=== PATIENT | male | born 1965 | race Two or more races ===

== ENCOUNTER → 2017-06-21 | Outpatient (CLI) | payer OTHER | END | disposition home or self-care (01) | LOC: SPEC 10:00 | PROVIDERS: ATTEND Nurse Practitioner | DX: B19.20 Unspecified viral hepatitis C without hepatic coma (principal) | CPT/HCPCS: 36415; 82140 ==

== ENCOUNTER 2017-08-07 01:42 | Inpatient (IN) | payer OTHER ==
[~2017-08-07] VITALS: Ht 167.6 cm; Wt 107.0 kg
--- NOTE | 2017-08-07 01:48 | ED.ADGEN ---
Past History Past Medical History: Hepatitis, Other Adult General Chief Complaint Chief Complaint " I ve been running a fever.. and my legs swollen and red.."..." I got hepatitis.." I was okay yesterday.. but I got all this redness on my Lt leg.. even up on my thigh......" HPI HPI Patient is a 51 year old male inmate from [facility], who presents with above hx of fever, chills, cellulitis of Lt leg. Pt. denies any recent travel or specific ill contacts. Pt. has hx. chronic Hept. C. , GERD, Constipation, Veinous stasis. Pt. currently having bouts of rigor and fever. Pt. denies immunosuppression. Review of Systems Review of Systems Constitutional: Hx of fever and chills [] Eyes: Denies change in visual acuity, redness, or eye pain [] HENT: Denies nasal congestion or sore throat [] Complaints of sore tongue Respiratory: Denies cough or shortness of breath [] Cardiovascular: No additional information not addressed in HPI [] GI: Denies abdominal pain, nausea, vomiting, bloody stools or diarrhea [] : Denies dysuria or hematuria [] Musculoskeletal: Denies back pain or joint pain [] Integument: Hx of rash and skin lesions [] Neurologic: Denies headache, focal weakness or sensory changes [] Endocrine: Denies polyuria or polydipsia [] All other systems were reviewed and found to be within normal limits, except as documented in this note. Family History Family History Non-contributory Current Medications Current Medications Current Medications Medications (Trade) Dose Ordered Sig/Sheba Start Time Stop Time Status Last Admin Dose Admin Acetaminophen (Tylenol) 1,000 mg 1X ONCE 08/07/17 04:00 08/07/17 04:01 DC 08/07/17 03:58 1,000 MG Ceftriaxone Sodium 1 gm/ Sodium Chloride 50 ml @ 100 mls/hr DAILY 08/07/17 09:00 UNV Ceftriaxone Sodium (Rocephin) 1 gm DAILY 08/07/17 09:00 08/07/17 09:00 DC Metronidazole 100 ml @ 100 mls/hr Q8HRS 08/07/17 06:00 08/07/17 06:00 DC Ondansetron HCl (Zofran) 4 mg PRN Q4HRS PRN 08/07/17 03:15 08/07/17 04:23 DC Sodium Chloride 250 ml @ As Directed STK-MED ONCE 08/07/17 03:17 08/07/17 03:18 DC Tetanus/ Diphtheria Toxoids Adsorbed (Tenivac Vial) 0.5 ml ONCE ONCE 08/07/17 04:00 08/07/17 04:01 DC 08/07/17 04:00 0.5 ML Vancomycin HCl (Vanco Per Pharmacy) 1 each PRN DAILY PRN 08/07/17 03:15 08/07/17 04:23 DC Vancomycin HCl (Vancomycin) 1 gm STK-MED ONCE 08/07/17 03:17 08/07/17 03:18 DC Vancomycin HCl 1 gm/Sodium Chloride 250 ml @ 250 mls/hr ONCE ONCE 08/07/17 04:00 08/07/17 04:23 DC See Nursing for Mcfp Meds. Allergies Allergies Allergies Coded Allergies Type Severity Reaction Last Updated Verified No Known Drug Allergies 08/07/17 No NKDA Physical Exam Physical Exam Constitutional: Moderately acute distress, non-toxic appearance. [] HENT: Normocephalic, atraumatic, bilateral external ears normal, oropharynx moist, mild injection pharynx, no oral exudates, nose normal. Geographic tongue. Eyes: PERRLA, EOMI, conjunctiva normal, no discharge. [] Neck: Normal range of motion, no tenderness, supple, no stridor. [] Cardiovascular: Tachycardia Heart rate regular rhythm, no murmur , Lungs & Thorax: Bilateral breath sounds equal at apex on auscultation [] Abdomen: Bowel sounds normal, soft, no tenderness, no masses, no pulsatile masses. [] Obese. Fluid wave. Skin: Warm, dry, Lt. thigh erythema and Lt distal leg, bilateral veinous stasis. Back: No tenderness, no CVA tenderness. [] Extremities: Lt leg tenderness, no cyanosis, no clubbing, ROM intact, bilateral leg edema. [] Neurologic: Alert and oriented X 3, no gross motor or sensory function deficits over his baseline. [] Psychologic: Affect anxious, judgement normal, mood normal. [] Current Patient Data Vital Signs Vital Signs Date Time Temp Pulse Resp B/P (MAP) Pulse Ox O2 Delivery O2 Flow Rate FiO2 08/07/17 04:10 103.1 98 18 135/58 (83) 99 Room Air Lab Results Laboratory Tests Test 08/07/17 02:05 08/07/17 02:30 White Blood Count 4.2 x10^3/uL (4.0-11.0) Red Blood Count 3.54 x10^6/uL (4.30-5.70) L Hemoglobin 9.6 g/dL (13.0-17.5) L Hematocrit 29.3 % (39.0-53.0) L Mean Corpuscular Volume 83 fL (79-100) Mean Corpuscular Hemoglobin 27 pg (25-35) Mean Corpuscular Hemoglobin Concent 33 g/dL (31-37) Red Cell Distribution Width 18.3 % (11.5-14.5) H Platelet Count 58 x10^3/uL (140-400) L Neutrophils (%) (Auto) 81 % (31-73) H Lymphocytes (%) (Auto) 10 % (24-48) L Monocytes (%) (Auto) 7 % (0-9) Eosinophils (%) (Auto) 2 % (0-3) Basophils (%) (Auto) 1 % (0-3) Neutrophils # (Auto) 3.4 x10^3uL (1.8-7.7) Lymphocytes # (Auto) 0.4 x10^3/uL (1.0-4.8) L Monocytes # (Auto) 0.3 x10^3/uL (0.0-1.1) Eosinophils # (Auto) 0.1 x10^3/uL (0.0-0.7) Basophils # (Auto) 0.0 x10^3/uL (0.0-0.2) Segmented Neutrophils % 80 % (35-66) H Band Neutrophils % 8 % (0-9) Lymphocytes % 7 % (24-48) L Monocytes % 4 % (0-10) Eosinophils % 1 % (0-5) Toxic Granulation Slight Platelet Estimate Decreased (ADEQUATE) Large Platelets Occ Polychromasia Slight Hypochromasia Mod Anisocytosis Mod Microcytosis Slight Macrocytosis Slight Tear Drop Cells Occ Ovalocytes Occ Prothrombin Time 13.8 SEC (9.4-11.4) H Prothrombin Time INR 1.4 (0.9-1.1) H PTT 33 SEC (23-33) Sodium Level 142 mmol/L (136-145) Potassium Level 3.7 mmol/L (3.5-5.1) Chloride Level 111 mmol/L (98-107) H Carbon Dioxide Level 25 mmol/L (21-32) Anion Gap 6 (6-14) Blood Urea Nitrogen 7 mg/dL (8-26) L Creatinine 1.0 mg/dL (0.7-1.3) Estimated GFR (Cockcroft-Gault) 79.1 Glucose Level 100 mg/dL (70-99) H Lactic Acid Level 1.6 mmol/L (0.4-2.0) Calcium Level 7.0 mg/dL (8.5-10.1) L Magnesium Level 1.8 mg/dL (1.8-2.4) Total Bilirubin 1.3 mg/dL (0.2-1.0) H Direct Bilirubin 0.6 mg/dL (0.0-0.2) H Aspartate Amino Transferase (AST) 125 U/L (15-37) H Alanine Aminotransferase (ALT) 77 U/L (16-63) H Alkaline Phosphatase 167 U/L (46-116) H Ammonia 141 mcmol/L (11-34) H Creatine Kinase 330 U/L (39-308) H Creatine Kinase MB (Mass) 1.2 ng/mL (0.0-3.6) Creatine Kinase MB Relative Index 0.4 % (0-4) Troponin I Quantitative < 0.017 ng/mL (0-0.055) QB-Fcw-F-Type Natriuretic Peptide 117 pg/mL (0-124) Total Protein 6.1 g/dL (6.4-8.2) L Albumin 2.1 g/dL (3.4-5.0) L Lipase 215 U/L (73-393) Influenza Type A (Rapid) Negative (NEGATIVE) Influenza Type B (Rapid) Negative (NEGATIVE) EKG EKG My interpretation EKG shows a sinus rhythm at 97 bpm. There is some nonspecific anterior lateral changes. But no findings acute STEMI of contralateral changes.[ ] Radiology/Procedures Radiology/Procedures I interpretation of chest x-ray shows somewhat patchy Rt. lung field, but no large pulmonary consolidation. [] Course & Med Decision Making Course & Med Decision Making Pertinent Labs and Imaging studies reviewed. (See chart for details). Discussed presentation, testing and tx. plan with Dr. Jansen. Will admit for further eval and tx. Pneumatic cuffs arms and Rt. leg. [] Final Impression Final Impression 1. Cellulitis 2. Veinous Stasis 3. Hx. Hepatitis[]C 4. Anemia 5. Thrombocytopenia 6. Elevated AST, ALT, Bili, and Alk Phos 7. Elevated CK 8. Malnutrition Alb. 2.l Problems: Dragon Disclaimer Dragon Disclaimer This electronic medical record was generated, in whole or in part, using a voice recognition dictation system. SINAI JAMES MD August 07, 2017 01:48
[2017-08-07] MEDS ORDERED: IV NORMAL SALINE 1,000ML 1,000 ML IV ONE (02:00)
--- NOTE | 2017-08-07 02:29 | EKG ---
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
[2017-08-07 02:43] LABS: BASO % 1 % (0-3); EOS # 0.1 x10^3/uL (0.0-0.7); EOS % 2 % (0-3); HEMATOCRIT 29.3 % (39.0-53.0); HEMOGLOBIN 9.6 g/dL (13.0-17.5); LYMPH # 0.4 x10^3/uL (1.0-4.8); LYMPH % 10 % (24-48); MEAN CORPUSCULAR HEMOGLOBIN 27 pg (25-35); MEAN CORPUSCULAR HGB CONC 33 g/dL (31-37); MEAN CORPUSCULAR VOLUME 83 fL (79-100); MONO # 0.3 x10^3/uL (0.0-1.1); MONO % 7 % (0-9); NEUT # 3.4 x10^3uL (1.8-7.7); NEUT % 81 % (31-73); PLATELET COUNT 58 x10^3/uL (140-400); RED BLOOD COUNT 3.54 x10^6/uL (4.30-5.70); RED CELL DISTRIBUTION WIDTH 18.3 % (11.5-14.5); WHITE BLOOD COUNT 4.2 x10^3/uL (4.0-11.0)
[2017-08-07 03:04] LABS: ALBUMIN 2.1 g/dL (3.4-5.0); DIRECT BILIRUBIN 0.6 mg/dL (0.0-0.2); GFR 79.1; MAGNESIUM 1.8 mg/dL (1.8-2.4); POTASSIUM 3.7 mmol/L (3.5-5.1); TOTAL BILIRUBIN 1.3 mg/dL (0.2-1.0); TOTAL PROTEIN 6.1 g/dL (6.4-8.2)
[2017-08-07 03:14] LABS: INFLUENZA A PATIENT NEGATIVE (NEGATIVE); INFLUENZA B PATIENT NEGATIVE (NEGATIVE)
[2017-08-07] MEDS ORDERED: VANCOMYCIN PER PHARMACY MC PRN (03:15)
[2017-08-07] MEDS ORDERED: VANCOMYCIN 1 GM in IV NORMAL SALINE 250ML 250 ML IV ONE ×2 (03:15→04:00)
[2017-08-07] MEDS ORDERED: ONDANSETRON PF 4 MG/2 ML VIAL. IV PRN (03:15)
[2017-08-07] MEDS ORDERED: VANCOMYCIN 1 GM VIAL. ONE (03:17)
[2017-08-07] MEDS ORDERED: IV NORMAL SALINE 250ML 250 ML ONE (03:17)
[2017-08-07 03:37] LABS: % BANDS 8 % (0-9); % EOS 1 % (0-5); % LYMPHS 7 % (24-48); % MONOS 4 % (0-10); % SEGS 80 % (35-66)
[2017-08-07 03:38] LABS: ANISOCYTOSIS MOD; HYPOCHROMIA MOD; PLT ESTIMATE DECREASED (ADEQUATE)
[2017-08-07 03:39] LABS: OVALOCYTES OCC; POLYCHROMASIA SLIGHT; TEAR DROP CELLS OCC; TOXIC GRANULATION SLIGHT
[2017-08-07 03:40] LABS: MICROCYTOSIS SLIGHT
[2017-08-07] MEDS ORDERED: TETANUS AND DIPHTHERIA TOX/PF 0.5 ML VIAL. VAX IM ONE (04:00)
[2017-08-07] MEDS ORDERED: ACETAMINOPHEN 500 MG TABLET PO ONE (04:00)
[2017-08-07 04:39] VITALS: BP 106/60
[2017-08-07] MEDS ORDERED: ASPI325T8 PO (05:11)
[2017-08-07] MEDS ORDERED: FURO40TA4 PO (05:14)
[2017-08-07] MEDS ORDERED: LACT10SO PO (05:16)
[2017-08-07] MEDS ORDERED: NAPR-514 PO (05:16)
[2017-08-07] MEDS ORDERED: SPIR50TA2 PO (05:20)
[2017-08-07] MEDS ORDERED: NYST1000 PO (05:20)
[2017-08-07] MEDS ORDERED: OMEP20TA8 PO (05:20)
[2017-08-07 07:34] LABS: BARBITURATES NEG (NEG); BENZODIAZEPINES NEG (NEG); CANNABINOIDS NEG (NEG); COCAINE NEG (NEG); METHADONE NEG (NEG); OPIATES NEG (NEG); PHENCYCLIDINE NEG (NEG)
[2017-08-07 07:40] LABS: AMPHETAMINE/METHAMPHETAMINE NEG (NEG)
[2017-08-07] MEDS: VANCOMYCIN PER PHARMACY MC PRN (07:41)
--- NOTE | 2017-08-07 07:45 | RAD ---
PA and lateral chest radiograph. History: Lower extremity swelling, shortness of air. Comparison: None. Findings: Cardiomediastinal silhouette is within normal limits for size. Bilateral lung harp appear clear without evidence of infiltrate, effusion, or pneumothorax. Bilateral skin folds are seen projecting over the costophrenic angles on the frontal view. No failure is evident. Impression: 1. No acute cardiopulmonary process. Electronically signed by: Riki Valentin MD (08/07/2017 7:42 AM) [facility]
[2017-08-07 07:46] LABS: BACTERIA,URINE 0 /HPF (0-FEW); BILIRUBIN,URINE NEG (NEG); CLARITY,URINE CLEAR; COLOR,URINE AMBER; GLUCOSE,URINE NEG (NEG); NITRITE,URINE NEG (NEG); SQUAMOUS EPITHELIAL CELL,UR OCC /LPF; UROBILINOGEN,URINE 2 mg/dL (0.2 mg/dL); WBC,URINE OCC /HPF (0-4)
[2017-08-07] MEDS ORDERED: cefTRIAXone IV Push 1 GM VIAL. IVP SCH (09:00)
[2017-08-07] MEDS: LACTOBACILLUS RHAMNOSUS GG 1 CAPSULE. PO SCH ×2 (10:00→20:48)
[2017-08-07 10:59] VITALS: BP 108/54
[2017-08-07] MEDS ORDERED: PIPERACILLIN/TAZOBACTAM 3.375 GM in IV NORMAL SALINE 50ML 50 ML IV SCH (14:00)
[2017-08-07] MEDS: LACTULOSE 20 GM/30 ML SOLUTION. PO SCH ×2 (14:02→20:48)
[2017-08-07] MEDS: VANCOMYCIN 1.5 GM in IV NORMAL SALINE 500ML 500 ML IV SCH ×2 (14:02→20:49)
[2017-08-07 14:46] VITALS: BP 111/55
--- NOTE | 2017-08-07 15:58 | RAD ---
Bilateral Lower Extremity Venous Doppler Ultrasound Indication: Left greater than right lower extremity swelling. Comparison: None. Procedure: Color Doppler, spectral Doppler, and grayscale images with and without compression are obtained in the area of the common femoral vein, superficial femoral vein - femoral vein junction, main femoral vein (superficial femoral vein) and popliteal vein. Veins of the proximal calf are also imaged. Findings: There is normal duplex flow, color flow and compressibility of all visualized vein segments. There is no evidence of deep venous thrombosis. Large left inguinal lymph node is seen, probably reactive. Impression: No evidence of lower extremity deep venous thrombosis. Electronically signed by: Riki Valentin MD (08/07/2017 3:55 PM) [facility]
[2017-08-07] MEDS: PIPERACILLIN/TAZOBACTAM 3.375 GM in IV NORMAL SALINE 50ML 50 ML IV SCH (16:25)
[2017-08-07 19:29] VITALS: BP 101/58
[2017-08-07] MEDS: NYSTATIN 100,000 UNITS/ML ORAL SUSPENSION 60ML BOTTLE. PO SCH (20:48)
[2017-08-07] MEDS: CLOTRIMAZOLE 1% TOPICAL CREAM 30GM TUBE. TP SCH (20:48)
[2017-08-07 23:00] VITALS: BP 105/60
[2017-08-08] MEDS: PIPERACILLIN/TAZOBACTAM 3.375 GM in IV NORMAL SALINE 50ML 50 ML IV SCH ×3 (00:56→16:52)
--- NOTE | 2017-08-08 00:58 | HP ---
ADMIT DATE: 08/07/2017 HISTORY AND PHYSICAL HISTORY OF PRESENT ILLNESS: The patient is a 51-year-old male patient currently an inmate from [facility] who was brought to the Emergency Room with a complaint of fever, chills, redness, and swelling of his left leg. The patient has been detained there for the last 6 months; however, [place] this country [place] at least 20 years according to him. He was evaluated in the Emergency Room, was admitted with diagnosis of left lower extremity cellulitis, venous stasis. He is known also to have chronic hepatitis C with thrombocytopenia and deranged liver enzymes and severe hypoalbuminemia consistent probably with advanced liver disease. His ammonia was also elevated at 141. PAST MEDICAL HISTORY: Significant for chronic hepatitis C, gastroesophageal reflux disease, chronic constipation, venous stasis. PAST SURGICAL HISTORY: Unremarkable. FAMILY HISTORY: Noncontributory. SOCIAL HISTORY: He is an inmate from [facility] [place]. At least while in the [facility], he does not smoke, drink alcohol, or use any recreational drugs. ALLERGIES: He has no known drug allergies. MEDICATIONS: He is currently on spironolactone 50 mg once a day, lactulose 30 mL p.o. t.i.d., furosemide 40 mg once a day, omeprazole 20 mg twice a day. He is also on nystatin 100,000 units per mL to take 5 mL twice a day and aspirin 325 mg once a day, naproxen 500 mg twice a day. REVIEW OF SYSTEMS: As per history of present illness. PHYSICAL EXAMINATION: GENERAL: On examining him on arrival to the Emergency Room, he was somewhat pale, but not jaundiced or cyanosis. No lymphadenopathy, no thyromegaly. No jugular venous distention, but marked bilateral lower limb edema. VITAL SIGNS: His heart rate was 95, blood pressure 140/48, temperature went up to 103.1 Fahrenheit, respiratory rate was 18 and oxygen saturation was 99%. HEENT: Showed normocephalic, atraumatic. He has what seems to be a geographical tongue as if the superficial mucosa is denuded, although there is no active bleeding. NECK: Supple. No lymphadenopathy, no thyromegaly, no jugular venous distension, no audible bruit. HEART: Showed normal first and second heart sounds with no gallop, rub, or murmur. CHEST: Shows central trachea, equal bilateral chest expansion and air entry, vesicular sounds. No crepitation or rhonchi. ABDOMEN: Distended, soft, nontender. No guarding or rigidity. No organomegaly. Hernial orifice intact. Bowel sounds normal. NEUROLOGIC: He is awake, alert, responding appropriately. All cranial nerves intact. He moves extremities without difficulty. He apparently ambulates without assistance or assistive devices. EXTREMITIES: Examination of lower extremities showed no clubbing, cyanosis. He has marked bilateral lower limb edema. He has also cellulitis of his left lower extremity with lymphangitis extending to the medial aspect of the left thigh. He has also what seems to be the athlete's foot with marked maceration of the skin between the toes of both feet, more so worse in the left side, probably as acting of the portal entry to the infection. He has extensive tattoos all over his body done at the present. He has also received blood transfusion while in [place] making these potential sources for acquiring hepatitis C. LABORATORY DATA: On admission showed a white cell count 4200, hemoglobin 9.6, hematocrit 29.3, MCV 83 and platelet count of 58,000 with an 81% polymorphs, 10% lymphocytes, and 7% monocytes. His prothrombin time was 15.8, INR 1.4, aPTT was 33. His serum sodium was 142, potassium 3.7, chloride 111, bicarbonate 25, anion gap of 6, BUN 7, creatinine 1, estimated GFR was 79 mL per minute. His glucose was 100, lactic acid 1.6, calcium was 7, magnesium was 1.8. Total bilirubin was 1.3. AST, ALT, alkaline phosphatase are all elevated. His ammonia is 141. CK slightly elevated at ____. His B-type natriuretic peptide is only 117, total protein was 6.1, albumin was 2.1. Lipase was 215. His TSH was 4.351. His urinalysis showed the urine was prema, clear with a pH of 7.5, specific gravity of 1.020. The urine was negative for protein, glucose, trace amount of ketones, trace of blood, negative for nitrite and leukocyte esterase. There were only 1-2 rbc's, no wbc's and no bacteria and urine toxicology was essentially negative. His chest x-ray showed that cardiomediastinal silhouette is within normal limits for size bilateral lung harp appear clear without evidence of infiltrate, effusion, or pneumothorax. Bilateral skin folds are seen projecting over the costophrenic angles on the frontal view. No failure is evident. IMPRESSION: In summary, this is a 51-year-old male patient, an inmate from [facility] who came with fevers, chills, and was found to have left lower extremity cellulitis. He has bilateral athlete's foot, has chronic hepatitis C with evidence of chronic liver disease and is with severe hypoalbuminemia, high ammonia, marked elevated liver enzymes as well as thrombocytopenia. PLAN: To continue with the IV vancomycin as well as Zosyn and we will await the result of the culture and sensitivity and decide on further management accordingly. We will continue with his Lasix as well as lactulose and spironolactone as well as omeprazole. I will hold his aspirin and naproxen. PRETTY VALDES MD DR: NAOMI/kishore JOB#: [id number] / [id number]
[2017-08-08 04:34] LABS: BASO % 0 % (0-3); EOS # 0.1 x10^3/uL (0.0-0.7); EOS % 2 % (0-3); HEMATOCRIT 24.6 % (39.0-53.0); HEMOGLOBIN 8.1 g/dL (13.0-17.5); LYMPH # 0.5 x10^3/uL (1.0-4.8); LYMPH % 17 % (24-48); MEAN CORPUSCULAR HEMOGLOBIN 27 pg (25-35); MEAN CORPUSCULAR HGB CONC 33 g/dL (31-37); MEAN CORPUSCULAR VOLUME 83 fL (79-100); MONO # 0.3 x10^3/uL (0.0-1.1); MONO % 9 % (0-9); NEUT # 2.3 x10^3uL (1.8-7.7); NEUT % 71 % (31-73); PLATELET COUNT 44 x10^3/uL (140-400); RED BLOOD COUNT 2.97 x10^6/uL (4.30-5.70); RED CELL DISTRIBUTION WIDTH 18.3 % (11.5-14.5); WHITE BLOOD COUNT 3.2 x10^3/uL (4.0-11.0)
[2017-08-08] MEDS: VANCOMYCIN 1.5 GM in IV NORMAL SALINE 500ML 500 ML IV SCH ×3 (04:42→21:21)
[2017-08-08 04:48] LABS: ALBUMIN 1.7 g/dL (3.4-5.0); ALBUMIN/GLOBULIN RATIO 0.5 (1.0-1.7); CALCIUM 6.9 mg/dL (8.5-10.1); GFR 79.1; POTASSIUM 3.7 mmol/L (3.5-5.1); TOTAL BILIRUBIN 1.3 mg/dL (0.2-1.0); TOTAL PROTEIN 5.1 g/dL (6.4-8.2)
[2017-08-08 04:49] LABS: VANC TR 13.6 mcg/mL (10.0-20.0)
[2017-08-08] MEDS ORDERED: ACETAMINOPHEN 325 MG TABLET PO ONE (05:30)
[2017-08-08 05:51] VITALS: BP 107/57
[2017-08-08] MEDS: NYSTATIN 100,000 UNITS/ML ORAL SUSPENSION 60ML BOTTLE. PO SCH ×2 (08:52→21:21)
[2017-08-08] MEDS: FUROSEMIDE 40 MG TABLET PO SCH (08:53)
[2017-08-08] MEDS: LACTOBACILLUS RHAMNOSUS GG 1 CAPSULE. PO SCH ×2 (08:53→21:21)
[2017-08-08] MEDS: LACTULOSE 20 GM/30 ML SOLUTION. PO SCH ×3 (08:53→21:00)
[2017-08-08] MEDS: PANTOPRAZOLE 40 MG TABLET. PO SCH (08:53)
[2017-08-08] MEDS: SPIRONOLACTONE 25 MG TABLET PO SCH (08:53)
[2017-08-08] MEDS: CLOTRIMAZOLE 1% TOPICAL CREAM 30GM TUBE. TP SCH ×2 (08:53→21:21)
[2017-08-08] MEDS: VANCOMYCIN PER PHARMACY MC PRN (09:18)
[2017-08-08 12:11] LABS: HCV ANTIBODY >11.0 s/co ratio (0.0-0.9); HEP A IGM ABDY Negative (Negative)
[2017-08-08 18:10] VITALS: BP 115/68
[2017-08-08 22:27] VITALS: BP 112/63
[2017-08-09] MEDS: PIPERACILLIN/TAZOBACTAM 3.375 GM in IV NORMAL SALINE 50ML 50 ML IV SCH ×2 (00:07→07:40)
[2017-08-09] MEDS: VANCOMYCIN 1.5 GM in IV NORMAL SALINE 500ML 500 ML IV SCH ×3 (05:22→20:23)
[2017-08-09 06:00] VITALS: BP 119/67
--- NOTE | 2017-08-09 06:07 | PN ---
DATE: 08/07/2017 SUBJECTIVE: The patient is resting slightly propped up in bed, in no apparent distress. His pain and redness and swelling is much improved. He has bilateral athlete's feet for which we started him on Lotrimin. He did spike a temperature yesterday up to 103 and also this morning at 100.7. PHYSICAL EXAMINATION: GENERAL: When I examined him this morning, he looked pale, but no jaundice, cyanosis, or thyromegaly. No jugular distention. ____ bilateral lower limb edema. VITAL SIGNS: His heart rate was 94, blood pressure was 107/57, temperature was 100.7, respiratory rate was 17 and oxygen saturation was 98%. HEAD, EYES, EARS, NOSE AND THROAT: Showed normocephalic, atraumatic. NECK: Supple. HEART: Showed normal first and second heart sounds. No gallop, rub or murmur. CHEST: Clear to auscultation. No crepitation or rhonchi. ABDOMEN: Distended, soft, nontender. No guarding or rigidity. No organomegaly. Hernial orifice intact. Bowel sounds normal. NEUROLOGIC: He is awake, alert, responding appropriately. All cranial nerves intact. He moves extremities without difficulty. His left lower extremity is more swollen than the right, still some redness, although it is fading. The swelling on the medial aspect of left leg has largely resolved. He did have venous Doppler ultrasound, which showed no evidence of lower extremity deep venous thrombosis. We did start him on vancomycin and Zosyn. LABORATORY DATA: His lab work this morning showed a white cell count of 3200, hemoglobin 8.1, hematocrit 24.6, MCV 83, and platelet count are down to 44,000. His chemistry showed a serum sodium 139, potassium 3.7, chloride 111, bicarbonate 20, anion gap of 8, BUN 12, creatinine 1, estimated GFR was 79 mL per minute. His glucose was 131, lactic acid 1.6, calcium was 6.9, magnesium 1.8. Total bilirubin 1.3. AST, ALT, alkaline phosphatase slightly elevated. His ammonia is down to 36. Total protein was 5.1, albumin was 1.7. His TSH was 4.35. His prothrombin time was ____, INR 1.4, aPTT was 33. His toxicology screen was negative. His vancomycin trough level was ____. His influenza A and B were negative. Group A Streptococcus rapid testing was negative. His throat culture showed heavy growth of routine respiratory nu and his blood culture still showed no growth after one day. ASSESSMENT: 1. Bilateral athlete's foot for which he is on Lotrimin cream to apply twice a day, left lower extremity cellulitis for which he is on IV vancomycin and Zosyn. 2. 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 In fact, he has pancytopenia. His white cell count is 3200, hemoglobin 8, hematocrit 24, and platelet count only 44,000. PLAN: My plan is to continue with the IV antibiotic. Continue with the Lotrimin cream. Unfortunately, the patient cannot use any heparin or Lovenox given his low platelets and because of the infection of his left lower extremity, SCDs cannot be used, we will monitor his lab work and await the result of blood culture. Once that becomes available, he can be discharged on oral antibiotic. PRETTY VALDES MD DR: NAOMI/kishore JOB#: [id number] / [id number]
[2017-08-09 06:34] LABS: BASO % 1 % (0-3); EOS # 0.1 x10^3/uL (0.0-0.7); EOS % 3 % (0-3); HEMOGLOBIN 8.2 g/dL (13.0-17.5); LYMPH # 0.5 x10^3/uL (1.0-4.8); LYMPH % 19 % (24-48); MEAN CORPUSCULAR HEMOGLOBIN 27 pg (25-35); MEAN CORPUSCULAR HGB CONC 33 g/dL (31-37); MEAN CORPUSCULAR VOLUME 83 fL (79-100); MONO # 0.2 x10^3/uL (0.0-1.1); MONO % 8 % (0-9); NEUT # 1.9 x10^3uL (1.8-7.7); NEUT % 68 % (31-73); PLATELET COUNT 41 x10^3/uL (140-400); RED BLOOD COUNT 3.01 x10^6/uL (4.30-5.70); RED CELL DISTRIBUTION WIDTH 17.7 % (11.5-14.5); WHITE BLOOD COUNT 2.7 x10^3/uL (4.0-11.0)
[2017-08-09] MEDS: LACTOBACILLUS RHAMNOSUS GG 1 CAPSULE. PO SCH ×2 (07:35→20:24)
[2017-08-09] MEDS: PANTOPRAZOLE 40 MG TABLET. PO SCH (07:36)
[2017-08-09] MEDS: FUROSEMIDE 40 MG TABLET PO SCH (07:36)
[2017-08-09] MEDS: SPIRONOLACTONE 25 MG TABLET PO SCH (07:36)
[2017-08-09] MEDS: LACTULOSE 20 GM/30 ML SOLUTION. PO SCH ×3 (07:36→20:24)
[2017-08-09] MEDS: NYSTATIN 100,000 UNITS/ML ORAL SUSPENSION 60ML BOTTLE. PO SCH ×2 (07:37→20:24)
[2017-08-09] MEDS: CLOTRIMAZOLE 1% TOPICAL CREAM 30GM TUBE. TP SCH ×2 (07:37→20:24)
[2017-08-09 09:31] LABS: CALCIUM 7.2 mg/dL (8.5-10.1); CREATININE 0.9 mg/dL (0.7-1.3); GFR 89.3
[2017-08-09 09:32] LABS: MAGNESIUM 1.7 mg/dL (1.8-2.4); POTASSIUM 3.7 mmol/L (3.5-5.1)
[2017-08-09 15:57] VITALS: BP 106/66
[2017-08-09 22:48] VITALS: BP 110/61
[2017-08-10] MEDS: VANCOMYCIN 1.5 GM in IV NORMAL SALINE 500ML 500 ML IV SCH (04:24)
[2017-08-10 05:03] VITALS: BP 116/64
--- NOTE | 2017-08-10 06:04 | PN ---
DATE: 08/09/2017 SUBJECTIVE: The patient is resting slightly propped up in bed, in no apparent distress. He continues to have bilateral lower extremity swelling. However, the redness on the left lower extremity and lymphangitis has completely resolved. So far, there is no growth from his blood cultures. He did spike his temperature this morning to 100 degrees Fahrenheit. PHYSICAL EXAMINATION: GENERAL APPEARANCE: When I saw him, he looked well and was clearly in no apparent respiratory distress, pale, but no jaundice, cyanosis, or thyromegaly. No jugular venous distension. No lower limb edema. VITAL SIGNS: His heart rate was 77, blood pressure was 119/67, temperature was 100, respiratory rate was 20, and oxygen saturation was 96% on room air. HEAD, EYES, EARS, NOSE AND THROAT: Showed normocephalic, atraumatic. NECK: Neck was Supple. No lymphadenopathy, no thyromegaly. No jugular venous distension. CARDIOVASCULAR: His heart showed normal first and second heart sounds. No gallop, rub or murmur. CHEST: Clear to auscultation. No crepitation or rhonchi. ABDOMEN: Distended, soft, nontender. NEUROLOGIC: He is awake, alert, responding appropriately. All cranial nerves are intact. He moves extremities without difficulty. EXTREMITIES: All the redness in the medial aspect of left thigh has completely resolved. His intake was 3760, no output was recorded. LABORATORY DATA: As of this morning showed a serum sodium 140, potassium 3.7, chloride 111, bicarbonate 22, anion gap of 7, BUN 11, creatinine 0.9, estimated GFR was 89 mL per minute, his glucose 110, calcium was 7.2, magnesium was 1.7. His total bilirubin, AST, ALT, alkaline phosphatase slightly elevated. His ammonia is down to 36. Total protein was 5.1, albumin was 1.7. His white cell count was 3700, hemoglobin 8.2, hematocrit 25, MCV 83 and platelet count of 41,000. ASSESSMENT: 1. Bilateral athlete's feet. 2. Left lower extremity cellulitis with redness and lymphangitis,, has resolved. 3. Advanced liver disease due to hepatitis C with portal hypertension, hepatic failure. 4. Hepatic encephalopathy, high ammonia and thrombocytopenia. PLAN: My plan is to discontinue Zosyn. Continue with vancomycin for now. Repeat his lab work tomorrow and he probably can be discharged back home on oral antibiotics perhaps in the form of Keflex. PRETTY VALDES MD DR: NAOMI/kishore JOB#: [id number] / [id number]
[2017-08-10 06:57] LABS: HEMATOCRIT 26.1 % (39.0-53.0); HEMOGLOBIN 8.6 g/dL (13.0-17.5); RED BLOOD COUNT 3.16 x10^6/uL (4.30-5.70); RED CELL DISTRIBUTION WIDTH 18.3 % (11.5-14.5); WHITE BLOOD COUNT 2.6 x10^3/uL (4.0-11.0)
[2017-08-10 07:06] LABS: CALCIUM 6.8 mg/dL (8.5-10.1); CREATININE 0.8 mg/dL (0.7-1.3); GFR 102.3
[2017-08-10] MEDS: LACTOBACILLUS RHAMNOSUS GG 1 CAPSULE. PO SCH (08:20)
[2017-08-10] MEDS: SPIRONOLACTONE 25 MG TABLET PO SCH (08:20)
[2017-08-10] MEDS: FUROSEMIDE 40 MG TABLET PO SCH (08:20)
[2017-08-10] MEDS: CLOTRIMAZOLE 1% TOPICAL CREAM 30GM TUBE. TP SCH (08:21)
[2017-08-10] MEDS: PANTOPRAZOLE 40 MG TABLET. PO SCH (08:21)
[2017-08-10] MEDS: NYSTATIN 100,000 UNITS/ML ORAL SUSPENSION 60ML BOTTLE. PO SCH (08:21)
[2017-08-10] MEDS: LACTULOSE 20 GM/30 ML SOLUTION. PO SCH (10:36)
[2017-08-10] MEDS ORDERED: CEPH-264 PO (12:32)
--- NOTE | 2017-08-10 13:46 | DS ---
DATE OF DISCHARGE: 08/07/2017 HOSPITAL COURSE: This is a 51-year-old male patient who is basically an inmate from [facility] who presented to the Emergency Room with fever, chills and redness of the left lower extremity. He was basically diagnosed with left lower extremity cellulitis. He has severe tinea pedis in both feet, probably the portal of entry for infection and also has severe advanced liver disease due to hepatitis C with basically portal hypertension, hepatic encephalopathy and has also mild coagulopathy, thrombocytopenia. He has also severe hypoalbuminemia, serum albumin is only 1.7. We did send blood for culture and sensitivity. I start him on IV Zosyn and vancomycin. He remained afebrile throughout his stay in the hospital. Both the blood cultures were negative. His throat swab also was negative. We did venous Doppler ultrasound of both lower extremities that showed no evidence of deep vein thrombosis. We could not basically put him on any prophylactic treatment for DVT because of infection and because of thrombocytopenia, ____ mechanical or chemical prophylaxis, as he remained stable throughout his stay and all the redness and lymphangitis has completely resolved. A decision was made to discharge him back to [facility] to continue on oral Keflex for another 7 days with a plan to inform the nursing staff there and if they have any physician that he has severe advanced liver disease due to hepatitis C. PHYSICAL EXAMINATION: GENERAL: When I examined today, he looked well and was clearly in no apparent respiratory distress, slightly pale, but no jaundice, cyanosis or thyromegaly. No jugular venous distension. No limb edema. VITAL SIGNS: His heart rate was 73, blood pressure was 116/64, temperature was 98.2, respiratory rate was 18 and oxygen saturation was 99% on room air. HEAD, EYES, EARS, NOSE AND THROAT: Normocephalic, atraumatic. NECK: Supple. HEART: Showed normal first and second heart sounds with no gallop, rub or murmur. CHEST: Clear to auscultation. No crepitation or rhonchi. ABDOMEN: Distended, soft, nontender. NEUROLOGIC: He is awake, alert, and responding appropriately. Cranial nerves intact. He moves extremities without difficulty. He has marked swelling of both lower extremities, likely third spacing because of severe hypoalbuminemia and he has no flapping tremor. His intake over the last 24 hours was ____, output was 2500. LABORATORY DATA: Showed white cell count 2600, hemoglobin 8.6, hematocrit 26, MCV 83 and platelet count of 50,000. His chemistry showed serum sodium 140, potassium 4, chloride 111, bicarbonate 23, anion gap of 6, BUN 7, creatinine 0.8, estimated GFR was 120 mL per minute. His glucose was 84, calcium was 6.8. Serum ammonia was 48. Total protein was 5.1, albumin was 1.7. His prothrombin time was 14.2, INR 1.4. Urinalysis was unremarkable and toxic screen was negative. His hepatitis A and B were negative, however, his hepatitis C was positive. As I stated, his 2 blood cultures were negative. His throat swab for culture was negative. DISCHARGE MEDICATIONS: He will be discharged back to [facility] to continue on following medications: Keflex 500 mg 3 times a day for 7 days, furosemide 40 mg once a day, lactulose 30 mL 3 times a day, omeprazole 20 mg twice a day, spironolactone 50 mg once a day. I did discontinue his aspirin and naproxen. FINAL DISCHARGE DIAGNOSES: 1. Left lower extremity cellulitis. 2. Bilateral tinea pedis. 3. Advanced liver disease due to hepatitis C, leukopenia. The patient has pancytopenia, high ammonia because of advanced liver disease and probably portosystemic shunt. PRETTY VALDES MD DR: NAOMI/kishore JOB#: [id number] / [id number]
== END 2017-08-10 14:00 | disposition home or self-care (01) | DRG 442 ==
LOC: ER 01:42 → EEVIPCON 04:31 → 1 SOUTH 04:31
PROVIDERS: ADMIT Internal Medicine; ATTEND Internal Medicine
DX: K72.90 Hepatic failure, unspecified without coma (principal); L03.116 Cellulitis of left lower limb; D61.818 Other pancytopenia; D68.9 Coagulation defect, unspecified; E46 Unspecified protein-calorie malnutrition; K76.6 Portal hypertension; K76.9 Liver disease, unspecified; B35.3 Tinea pedis; B18.2 Chronic viral hepatitis C; I87.8 Other specified disorders of veins; K21.9 Gastro-esophageal reflux disease without esophagitis; K59.00 Constipation, unspecified; K59.09 Other constipation; D64.9 Anemia, unspecified; Z68.38 Body mass index [BMI] 38.0-38.9, adult
CPT/HCPCS: 36415; 71046; 80048; 80053; 80074; 80076; 80202; 80307; 81001; 82140; 82553; 83605; 83690; 83735; 83880; 84443; 84484; 85007; 85025; 85027; 85610; 85730; 87040; 87070; 87804; 87880; 90471; 90714; 93005; 93970; 96365; 96367; J0696; J2543; J3370; J3490; J7040; J7050; 99285-25; G0479; J7030

== ENCOUNTER → 2017-11-01 | Outpatient (CLI) | payer OTHER ==
[~2017-11-01] MED LIST: ASPI325T8 PO; CEPH-264 PO; FURO40TA4 PO; LACT10SO PO; NAPR-514 PO; NYST1000 PO; OMEP20TA8 PO; SPIR50TA4 PO
[2017-11-01 17:47] LABS: HEMATOCRIT 29.5 % (39.0-53.0); HEMOGLOBIN 9.6 g/dL (13.0-17.5)
== END | disposition home or self-care (01) ==
LOC: SPEC 17:35
PROVIDERS: ATTEND Preventive Medicine Occupational Medicine
DX: B19.20 Unspecified viral hepatitis C without hepatic coma (principal); K21.9 Gastro-esophageal reflux disease without esophagitis; Z68.38 Body mass index [BMI] 38.0-38.9, adult
CPT/HCPCS: 36415; 85014; 85018